=== PATIENT | female | born 1975 | race Caucasian/White ===

== ENCOUNTER 2017-12-22 10:04 | Emergency (ER) | payer OTHER ==
[2017-12-22 10:36] VITALS: TEMP 98.1
[2017-12-22] MEDS ORDERED: ACETAMINOPHEN-CAFF-BUTALBITAL 1 EA TAB ONE (11:04)
--- NOTE | 2017-12-22 11:09 | CT ---
EXAM DESCRIPTION: Head CLINICAL HISTORY: syncope COMPARISON: None available TECHNIQUE: Contiguous axial images through the head were obtained without intravenous contrast administration. Sagittal and coronal reconstructions were reviewed. FINDINGS: No evidence of acute major vascular territorial infarct or intraparenchymal hemorrhage. No intra-axial or extra-axial fluid collections are identified. The ventricles and cisterns appear normal in caliber. The sella and suprasellar regions appear normal. The structures of the posterior fossa are intact. The globes are intact bilaterally. The visualized paranasal sinuses and mastoid air cells are well-aerated. Review of the bones demonstrates no gross instability. IMPRESSION: No CT evidence of acute intracranial process. This exam was performed according to our departmental dose-optimization program, which includes automated exposure control, adjustment of the mA and/or kV according to patient size and/or use of iterative reconstruction technique. Electronically signed by: Davie Davies MD 12/22/2017 11:07 AM CDT
--- NOTE | 2017-12-22 11:09 | RAD ---
EXAM DESCRIPTION: Cervical Spine,3 Views CLINICAL HISTORY: 42 years Female, syncope/fall TECHNIQUE: 3 views of the cervical spine were obtained. COMPARISON: None available. FINDINGS: The craniocervical junction is intact. There is normal alignment of the odontoid process with the lateral masses The vertebral body heights are well-maintained with no acute compression deformity. The intervertebral disc spaces are well preserved. The visualized prevertebral and paravertebral soft tissues appear grossly unremarkable. IMPRESSION: Normal radiographs of the cervical spine. Electronically signed by: Davie Davies MD 12/22/2017 11:08 AM CDT
[2017-12-22] MEDS ORDERED: ACETAMINOPHEN-CAFF-BUTALBITAL 1 EA TAB PO ONE (11:28)
--- NOTE | 2017-12-22 14:17 | ED.PDOC ---
History of Present Illness - General Chief Complaint: Syncope/Near Syncope Stated Complaint: syncope, hit head Time Seen by Provider: 12/22/17 10:06 Source: patient Exam Limitations: no limitations - History of Present Illness Initial Comments: the patient is a 42-year-old female presenting to the emergency room after a syncopal event while watching a PICC line being placed. The patient is a nursing clinical director. She had been standing for a while. She has not really had significant episodes of recurrent syncope or near syncope. She does have a history of mild anemia. When she fell she did hit the right side of her headas well as the right side of her jaw. There is no malocclusion. No clicking. She is alert and oriented. She does have a headache. She does have mild pain to the upper right lateral neck. No central pain. No step-off. No palpable deformity of the skull either. No CSF from the nares or ear canals. No evidence of pain elsewhere. She reports that she has had history of palpitations in the past and has had extensive cardiac workup in the past. She felt like she was having one of these episodes prior to the event. She has been monitored here extensively without any evidence of any arrhythmia. She has also been monitored as an outpatient apparently without any evidence of any arrhythmia. She does have a history of diabetes and gastroparesis. Timing/Duration: momentarily Severity: moderate Improving Factors: nothing Allergies/Adverse Reactions: Allergies Iodine Allergy (Verified 12/22/17 10:13) Home Medications: Ambulatory Orders Gboccxrheqlhr-Bwyw-Amhcipbnaj [Fioricet] 1 ea PO Q8H PRN #21 tab 12/22/17 Review of Systems - Review of Systems Constitutional: States: malaise EENTM: States: mouth pain - Jaw pain Respiratory: States: no symptoms reported Cardiology: States: palpitations Gastrointestinal/Abdominal: States: no symptoms reported Genitourinary: States: no symptoms reported Musculoskeletal: States: see HPI Skin: States: no symptoms reported Neurological: States: headache Endocrine: States: no symptoms reported All other Systems: No Change from Baseline Past Medical History (General) - Patient Medical History Hx Diabetes: Yes Surgical History: other Family Medical History - Family History Mother Family History: No Known Physical Exam - Physical Exam General Appearance: Alert, No apparent distress Eye Exam: bilateral normal Ears, Nose, Throat: hearing grossly normal, normal ENT inspection, normal pharynx Neck: full range of motion, other - see history of present illness Respiratory: lungs clear, normal breath sounds, no respiratory distress, no accessory muscle use Cardiovascular/Chest: normal peripheral pulses, regular rate, rhythm, no edema Peripheral Pulses: radial,right: 2+, radial,left: 2+, dorsalis pedis,right: 2+, dorsalis pedis,left: 2+ Gastrointestinal/Abdominal: non tender, soft Rectal Exam: deferred Back Exam: normal inspection, no CVA tenderness, no vertebral tenderness Extremity: non-tender, normal inspection, no pedal edema, normal capillary refill 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, no motor/sensory deficits, alert, oriented x 3 Skin Exam: normal color Comments: Vital Signs - 24 hr 12/22/17 12/22/17 12/22/17 10:08 11:11 11:13 Temperature 98.1 F Pulse Rate [ 91 H 84 83 right brachial] Respiratory 20 12 Rate Blood Pressure 136/86 123/76 124/89 [right brachial ] O2 Sat by Pulse 100 98 98 Oximetry 12/22/17 12/22/17 11:14 11:30 Temperature Pulse Rate [ 88 76 right brachial] Respiratory 20 Rate Blood Pressure 129/90 119/75 [right brachial ] O2 Sat by Pulse 98 98 Oximetry Progress - Progress Progress: 12/22/17 14:20 the patient a 42-year-old female presenting with a syncopal episode. This is most likely vasovagal in nature. She needs to keep herself well- hydrated. Laboratory work appears reassuring. Head CT and x-ray and cervical spine are reassuring. Telemetry monitoring has been reassuring. It is possible she may have sustained a mild concussion with the fall. She should rest the rest of the day. ER warnings were given. She should follow back up with her primary care doctor towards the end of the week. - Results/Orders Results/Orders: head CT shows no evidence of any acute pathology. X-ray of the cervical spine shows no evidence of any acute pathology. Telemetry shows no evidence of any significant arrhythmia. EKG shows normal sinus rhythm with mild left atrial dilation and an early right bundle branch block. Borderline QT interval. No acute ST segment or T-wave changes concerning for ischemia. Laboratory Tests 12/22/17 12/22/1712/22/18 10:13 10:33 10:33 WBC 7.2 RBC 4.55 Hgb 11.4 L Hct 34.5 L MCV 75.8 L MCH 25.0 L MCHC 33.1 RDW 16.3 H Plt Count 293 MPV 7.6 Absolute Neuts (auto) 5.00 Absolute Lymphs (auto) 1.50 Absolute Monos (auto) 0.60 Absolute Eos (auto) 0.10 Absolute Basos (auto) 0.00 Neutrophils % 69.1 Lymphocytes % 21.2 Monocytes % 7.8 Eosinophils % 1.4 Basophils % 0.5 Sodium 137 Potassium 3.6 Chloride 104 Carbon Dioxide 26 Anion Gap 10.6 L BUN 12 Creatinine 0.70 BUN/Creatinine Ratio 17.1 POC Glucose 122 H Random Glucose 116 H Serum Osmolality 274.6 L Calcium 8.9 Magnesium 1.9 Total Bilirubin 0.7 AST 16 ALT 13 Alkaline Phosphatase 51 Serum Total Protein 6.9 Albumin 3.8 Globulin 3.1 Albumin/Globulin Ratio 1.2 TSH 1.40 Serum HCG, Qual Urine Color Urine Appearance Urine pH Ur Specific Badger Urine Protein Urine Glucose (UA) Urine Ketones Urine Blood Urine Nitrite Urine Bilirubin Urine Urobilinogen Ur Leukocyte Esterase Urine RBC Urine WBC Ur Epithelial Cells Urine Bacteria 12/22/17 12/22/17 10:33 Unknown WBC RBC Hgb Hct MCV MCH MCHC RDW Plt Count MPV Absolute Neuts (auto) Absolute Lymphs (auto) Absolute Monos (auto) Absolute Eos (auto) Absolute Basos (auto) Neutrophils % Lymphocytes % Monocytes % Eosinophils % Basophils % Sodium Potassium Chloride Carbon Dioxide Anion Gap BUN Creatinine BUN/Creatinine Ratio POC Glucose Random Glucose Serum Osmolality Calcium Magnesium Total Bilirubin AST ALT Alkaline Phosphatase Serum Total Protein Albumin Globulin Albumin/Globulin Ratio TSH Serum HCG, Qual Negative Urine Color Yellow Urine Appearance Clear Urine pH 5.5 Ur Specific Badger >= 1.030 Urine Protein Negative Urine Glucose (UA) Negative Urine Ketones Negative Urine Blood Trace-intact H Urine Nitrite Negative Urine Bilirubin Negative Urine Urobilinogen 0.2 Ur Leukocyte Esterase Negative Urine RBC 1-3 Urine WBC 0 Ur Epithelial Cells 1-3 Urine Bacteria 0 Departure - Departure Clinical Impression: Syncope Qualifiers: Syncope type: vasovagal syncope Qualified Code(s): R55 - Syncope and collapse Disposition: Discharge to Home or Self Care Condition: Fair Departure Forms: ED Discharge - Pt. Copy, Patient Portal Self Enrollment Instructions: DI for Syncope in Adults (Fainting) Diet: diabetic diet Activity: increase activity as tolerated Prescriptions: Frqhuvnizeurq-Ccid-Admoicrihp [Fioricet] 1 ea PO Q8H PRN #21 tab PRN Reason: Pain Home Medications: Ambulatory Orders Wqeidozcycvxu-Bepv-Zpfvjqhmsa [Fioricet] 1 ea PO Q8H PRN #21 tab 12/22/17 Additional Instructions: the patient a 42-year-old female presenting with a syncopal episode. This is most likely vasovagal in nature. She needs to keep herself well- hydrated. Laboratory work appears reassuring. Head CT and x-ray and cervical spine are reassuring. Telemetry monitoring has been reassuring. It is possible she may have sustained a mild concussion with the fall. She should rest the rest of the day. ER warnings were given. She should follow back up with her primary care doctor towards the end of the week.
[2017-12-22] MEDS ORDERED: HYDROcodone 7.5MG/APAP 325MG 1 EA TAB PO ONE (14:18)
[2017-12-22 14:44] VITALS: BP 123/71; O2SAT 96
== END 2017-12-22 14:51 | disposition home or self-care (01) ==
LOC: ER 10:04
DX: R55 Syncope and collapse (principal); R51 Headache; M54.2 Cervicalgia; R68.84 Jaw pain; E11.9 Type 2 diabetes mellitus without complications; D64.9 Anemia, unspecified; Z91.041 Radiographic dye allergy status; Z79.899 Other long term (current) drug therapy

== ENCOUNTER → 2018-11-21 | Outpatient (CLI) | payer OTHER | LOC: LAB.O 12:54 | PROVIDERS: ATTEND Nurse Practitioner Acute Care | DX: L29.9 Pruritus, unspecified (principal) ==

== ENCOUNTER → 2019-03-27 | Outpatient (CLI) | payer OTHER ==
[2019-03-27] MEDS: cefTRIAXone SODIUM 1 GM VIAL IM ONE (18:32)
[2019-03-27] MEDS: DEXAMETHASONE INJ 4 MG/ML VIAL IM ONE (18:32)
== END ==
LOC: TXRM 17:54
PROVIDERS: ATTEND Nurse Practitioner Family
DX: J00 Acute nasopharyngitis [common cold] (principal)
CPT/HCPCS: 96372; J0696; J1100

== ENCOUNTER 2020-02-19 12:14 | Emergency (ER) | payer OTHER ==
--- NOTE | 2020-02-19 12:42 | ED.PDOC ---
History of Present Illness - General Chief Complaint: Respiratory Problem Stated Complaint: RECENT COVID, NOT ANY BETTER Time Seen by Provider: 02/19/20 12:20 - History of Present Illness Comments: SYMPTOMS OF COVID SINCE 02/07, TESTED POSITIVE 9-10 DAYS AGO. WAS CONFUSED FOR THE FIRST TIME THIS MORNING, INTRACTABLE COUGH, MYALGIAS, CHEST PAIN. Cough Quality/Degree: severe Possible Cause: no prior episodes Improving Factors: nothing Worsening Factors: nothing Associated Symptoms: fever/chills, headache, lightheadedness, muscle aches, nasal congestion, nasal drainage, shortness of breath Respiratory Risk Factors: other - HYPERTENSION ON MEDS, OBESITY, DM BUT NOT ON MEDS ANY MORE FOR DM. HAS BEEN ON AUGMENTIN AND DOXYCYCLINE, Allergies/Adverse Reactions: Allergies Iodine Allergy (Verified 02/19/20 12:25) Home Medications: Ambulatory Orders Oppimzcuubtfi-Dhud-Hpiaazmsrq [Fioricet] 1 ea PO Q8H PRN #21 tab 12/22/17 Amlodipine Besylate 02/19/20 Levothyroxine Sodium [Tirosint] 125 mcg PO DAILY 02/19/20 Potassium Chloride [Potassium Chloride ER] 20 meq PO DAILY #7 tab 02/19/20 Promethazine HCl 25 mg PO PRN 02/19/20 Promethazine Tab [Phenergan Tablet] 25 mg PO Q4H PRN #15 tab 02/19/20 Review of Systems - Review of Systems Constitutional: States: see HPI, fever, weakness EENTM: States: see HPI Respiratory: States: see HPI Cardiology: States: chest pain Gastrointestinal/Abdominal: States: nausea, vomiting Musculoskeletal: States: back pain, muscle pain, muscle stiffness Skin: States: no symptoms reported Neurological: States: weakness - GENERALIZED, other - CONFUSION THIS MORNING Endocrine: States: no symptoms reported Past Medical History (General) - Patient Medical History Hx Diabetes: Yes Family Medical History - Family History Mother Family History: No Known Departure - Departure Clinical Impression: COVID-19, Hyponatremia, Dehydration Vomiting Qualifiers: Vomiting type: unspecified Vomiting Intractability: non-intractable Nausea presence: with nausea Qualified Code(s): R11.2 - Nausea with vomiting, unspecified Time of Disposition: 14:35 Disposition: Discharge to Home or Self Care Condition: Excellent Departure Forms: ED Discharge - Pt. Copy, Patient Portal Self Enrollment Referrals: Duran Muller MD [Primary Care Provider] - 1-2 Weeks Prescriptions: Promethazine Tab [Phenergan Tablet] 25 mg PO Q4H PRN #15 tab PRN Reason: Nausea Potassium Chloride [Potassium Chloride ER] 20 meq PO DAILY #7 tab Home Medications: Ambulatory Orders Oobrkmlsslfdf-Rezv-Vhfnndqjxz [Fioricet] 1 ea PO Q8H PRN #21 tab 12/22/17 Amlodipine Besylate 02/19/20 Levothyroxine Sodium [Tirosint] 125 mcg PO DAILY 02/19/20 Potassium Chloride [Potassium Chloride ER] 20 meq PO DAILY #7 tab 02/19/20 Promethazine HCl 25 mg PO PRN 02/19/20 Promethazine Tab [Phenergan Tablet] 25 mg PO Q4H PRN #15 tab 02/19/20
[2020-02-19] MEDS ORDERED: KETOROLAC TROMETHAMINE INJ 30 MG/ML VIAL IV ONE (12:45)
[2020-02-19] MEDS ORDERED: SODIUM CHLORIDE 0.9% 500ML 500 ML IVS ONE (12:45)
[2020-02-19] MEDS ORDERED: ONDANSETRON INJ 4 MG/2 ML VIAL IV ONE (12:45)
--- NOTE | 2020-02-19 13:32 | RAD ---
Exam(s): XR CHEST 1 VIEW: 02/19/2020 12:21 PM [employer] Indication: COVID 19 MAIN Comparison Study Date: None Technique: AP chest radiograph. Findings: There are subtle interstitial densities in the periphery of the lower lobes. The lungs are otherwise clear. No overt infiltrate. No pleural effusion or pneumothorax. Heart size is normal. Normal mediastinal contours. No bone abnormality is identified. IMPRESSION: Subtle pulmonary opacities, consistent with COVID-19 pneumonia. Electronically signed by: Jacinto Potter MD 02/19/2020 1:30 PM [employer]
[2020-02-19] MEDS ORDERED: POTASSIUM CHLORIDE 20 MEQ TAB PO ONE (14:11)
--- NOTE | 2020-02-19 14:32 | CT ---
EXAM: CT head without contrast HISTORY: Confusion COMPARISON: None. TECHNIQUE: Head/brain axial images acquired without contrast. Coronal and sagittal reformats created. Exam performed according to departmental dose-optimization program which includes automated exposure control, adjustment of mA and/or kV according to patient size, and/or use of iterative reconstruction technique. FINDINGS: No midline shift, mass effect, intracranial hemorrhage, or hydrocephalus. Cerebellar tonsils appear mildly inferiorly displaced at foramen magnum. Brain parenchyma otherwise unremarkable. Paranasal sinuses and mastoid air cells clear. No skull fracture or significant skull lesion. 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 No CT evidence of acute intracranial abnormality. Electronically signed by: Umberto Gallagher MD 02/19/2020 2:31 PM [facility]
[2020-02-19 14:34] VITALS: O2SAT 97
[2020-02-19 14:53] VITALS: BP 124/83; TEMP 97.8
[2020-02-21] MEDS ORDERED: HYDROmorphone HCL INJ 2 MG/ML VIAL IM ONE (22:55)
== END 2020-02-19 14:53 | disposition home or self-care (01) ==
LOC: ER 12:14
DX: U07.1 COVID-19 (principal); E86.0 Dehydration; E87.1 Hypo-osmolality and hyponatremia; R41.0 Disorientation, unspecified; R51.9 Headache, unspecified; E11.9 Type 2 diabetes mellitus without complications; I10 Essential (primary) hypertension; E66.9 Obesity, unspecified; Z79.899 Other long term (current) drug therapy; Z91.041 Radiographic dye allergy status; Z68.36 Body mass index [BMI] 36.0-36.9, adult
CPT/HCPCS: 70450; 71045; 80053; 83605; 85025; 85379; 86140; 87040; 93005; J1885; J2405; J7040